=== PATIENT | female | born 1970 | race Caucasian/White ===

== ENCOUNTER 2017-04-24 10:52 | Emergency (ER) | payer OTHER ==
[~2017-04-24] VITALS: Ht 160 cm; Wt 62.9 kg
[~2017-04-24 10:52] MED LIST: PREDNISONE20 MG PO; TESSALON PERLE100 MG PO
[2017-04-24] MEDS ORDERED: MOTRIN800 MG PO (13:03)
[2017-04-24] MEDS ORDERED: REGLAN5 MG PO (13:03)
[2017-04-24 13:33] VITALS: BP 141/84
== END 2017-04-24 13:50 | disposition home or self-care (01) ==
LOC: EME 10:52
DX: G43.909 Migraine, unspecified, not intractable, without status migrainosus (principal); F17.210 Nicotine dependence, cigarettes, uncomplicated
CPT/HCPCS: 99281; 99283; J1885